=== PATIENT | male | born 1955 | race Caucasian/White ===

== ENCOUNTER 2024-02-24 11:37 | Outpatient (CLI) | payer MEDICARE, MEDICAID | END 2024-02-24 23:59 | disposition home or self-care (01) | LOC: CARD DIAG 11:37 | PROVIDERS: ATTEND Internal Medicine Interventional Cardiology | DX: I08.3 Combined rheumatic disorders of mitral, aortic and tricuspid valves (principal); R94.31 Abnormal electrocardiogram [ECG] [EKG] | CPT/HCPCS: 93306 ==